=== PATIENT | female | born 2000 | race Two or more races ===

== ENCOUNTER 2024-05-12 13:42 | Emergency (ER) | payer BC, OTHER ==
[~2024-05-12] VITALS: Ht 157.5 cm; Wt 104.8 kg
[2024-05-12 13:48] VITALS: BP 131/93; PULSE 74; RESP 20; TEMP 97.7; O2SAT 98
--- NOTE | 2024-05-12 16:02 | ED.PDOC ---
Burn HPI HPI Comments 23 year old female presents for a burn Occurred 5 hours ago while making tea The handle broke from the pot causing water to spill on her stomach Pain 06/02 Denies hx of DM Chief Complaint: Melendez Time Seen by MD: 14:21 Primary Care Provider: NONE Reviewed notes: Nurses Notes, Medications, Allergies Allergies: Coded Allergies: NO KNOWN ALLERGIES (Unverified , 05/12/24) Information Source: Patient Mode of Arrival: Ambulatory Social History Smoker: Non-Smoker Alcohol: Denies ETOH Use Drugs: Denies Drug Use All Other Systems: Reviewed and Negative (Per HPI) Physical Exam General Appearance: No Apparent Distress, Normal HEENT: Normal ENT Inspection, Pharynx Normal, TMs Normal Neck: Full Range of Motion, Non-Tender, Normal, Normal Inspection Respiratory: Chest Non-Tender, Lungs Clear, No Accessory Muscle Use, No Respiratory Distress, Normal Breath Sounds Cardiovascular: No Edema, No JVD, No Murmur, No Gallop, Normal Peripheral Pulses, Regular Rate/Rhythm Breast Exam: Deferred Gastrointestinal: No Organomegaly, Non Tender, No Pulsatile Mass, Normal Bowel Sounds, Soft Genitalia: Deferred Pelvic: Deferred Rectal: Deferred Extremities: No calf tenderness, Normal capillary refill, Normal inspection, Normal range of motion, Non-tender, No pedal edema Musculoskeletal : Apperance: Normal Neurologic: Alert, No Motor Deficits, Normal Affect, Normal Mood, No Sensory Deficits Cerebellar Function: Normal Reflexes: Normal Skin: Dry, Normal Color, Warm, Other (superficial burn (1x1 cm) to RLQ. No surrounding erythema. No TTP. No open wounds ) Lymphatic: No Adenopathy Was a procedure done? Was a procedure done?: No Differentail Diagnosis (BRN) Differential Diagnosis: Other X-Ray, Labs, Meds, VS Vital Signs Date Time Temp Pulse Resp B/P (MAP) Pulse Ox O2 Delivery O2 Flow Rate FiO2 05/12/24 13:48 74 20 98 Room Air 05/12/24 13:48 97.7 74 20 131/93 (106) 98 97.7 05/12/24 13:48 97.7 74 20 131/93 (106) 98 Current Medications Medications (Trade) Dose Ordered Sig/Myles Route Start Time Stop Time Status Last Admin Silver Sulfadiazine (Silvadene) 1 applic ONCE ONCE TOP 05/12/24 16:15 05/12/24 16:24 DC 05/12/24 16:15 Diphtheria/ Tetanus/Acell Pertussis (Boostrix T-Dap) 0.5 ml ONCE ONCE IM 05/12/24 16:15 05/12/24 16:24 DC 05/12/24 16:16 X-Ray, Labs, Meds, VS Comment 23 year old F presented with burn to the abdominal wall. Patient presents with first degree burn. No signs of secondary infection. Airway protected with no evidence of inhalation injury. No history of DM. Will manage with outpatient topical bacitracin. Interventions: Burn cleansed in ED and dressed with xeroform and bacitracin topical antibiotic. Analgesia was provided. Tetanus vaccine updated. Disposition: Wound check in 24-48 hours. Patient will be discharged with strict return precautions and advice to follow up with primary MD within 24 hours for repeat evaluation. Patient understands that they may have scarring and may req [facility] or plastic surgery follow up. Time of 1ST Reevaluation: 16:09 Reevaluation 1ST: Improved Patient Education/Counseling: Diagnosis, Treatment Family Education/Counseling: Diagnosis, Treatment Departure 1 Departure Time of Disposition: 16:09 Impression: Primary Impression: First degree burn of abdominal wall Qualified Codes: T21.12XA - Burn of first degree of abdominal wall, initial encounter Disposition: 01 HOME / SELF CARE / HOMELESS Condition: Fair Critical Care Note Critical Care Time?: No Stability Stability form required: No Heart Score Heart Score: Heart Score Response (Comments) Value History N/A 0 EKG N/A 0 Age N/A 0 Risk Factors N/A 0 Troponin N/A 0 Total 0 FABIEN WEBER NP May 12, 2024 16:02
[2024-05-12] MEDS: SILVER SULFADIAZINE 1 % TOPICAL CREAM 50GM TOP ONE (16:15)
[2024-05-12] MEDS: TETANUS-DIPTH-ACEL PERTUSSIS 0.5ML SYR Tdap IM ONE (16:16)
== END 2024-05-12 16:11 | disposition home or self-care (01) ==
LOC: ER 13:42
DX: T21.12XA Burn of first degree of abdominal wall, initial encounter (principal); X08.8XXA Exposure to other specified smoke, fire and flames, initial encounter; Y93.89 Activity, other specified; Y92.89 Other specified places as the place of occurrence of the external cause; Y99.8 Other external cause status
CPT/HCPCS: 16000; 16020; 90715; 96372